=== PATIENT | female | born 1985 | race African-American/Black ===

== ENCOUNTER 2017-02-08 21:56 | Emergency (ER) | payer MEDICAID ==
--- NOTE | 2017-02-09 20:00 | ER ---
ADMIT: 02/08/2017 RM/LOC: ER [facility] MR#: [id number] [address] [facility] [address] [place], [place] [id number] [address] Ashleigh Rogers [address] [place], [place] [id number] Emergency Room Report SEX: F AGE: 32 : 1985 DATE: 02/08/2017 TIME: 2156 hours. PRIMARY CARE: Dr. H[facility]. Please refer to my T-sheet for complete H and P. Briefly, the patient comes in with vomiting. Says she us is late about 3 days. No diarrhea, epigastric cramping. PHYSICAL EXAMINATION: VITAL SIGNS: Stable. ABDOMEN: Soft. No rebound or guarding. Mildly tender in epigastric. EMERGENCY DEPARTMENT COURSE: UA came back positive for and 31 red cells, otherwise urine looked okay. It was sent for culture. I gave her Zofran and Maalox. She is feeling much better. ASSESSMENT: 1. Nausea and vomiting. 2. . PLAN: Follow up with [facility]. Return if worse. Zoan, I gave her script for 15. Shadi Casper MD/ tiffanie JOB #: [id number] CC: Shadi Casper MD, Attending Physician Meryl Delgado MD, Family Physician
== END 2017-02-08 22:56 | disposition home or self-care (01) ==
LOC: ER 21:56
DX: O21.9 Vomiting of pregnancy, unspecified (principal); Z3A.01 Less than 8 weeks gestation of pregnancy; Z90.49 Acquired absence of other specified parts of digestive tract